=== PATIENT | male | born 1990 | race African-American/Black ===

== ENCOUNTER 2018-03-12 19:57 | Emergency (ER) | payer OTHER ==
[~2018-03-12] VITALS: Ht 160 cm; Wt 63.0 kg
[2018-03-12 20:58] LABS: PLATELET COUNT 366 K/uL (142-355)
[2018-03-12 22:52] VITALS: BP 119/67; TEMP 98.7
== END 2018-03-12 22:55 | disposition home or self-care (01) ==
LOC: ED 19:57
PROVIDERS: Allergy & Immunology
DX: L03.011 Cellulitis of right finger (principal)
CPT/HCPCS: 85027; 90471; 90715; 96365; 99283; J0696; J2405